=== PATIENT | male | born 2000 | race Caucasian/White ===

== ENCOUNTER 2024-05-11 14:26 | Outpatient (REF) | payer BC, SELFPAY ==
--- NOTE | ~2024-05-11 | MR_ITS ---
EXAMINATION: MR LUMBAR SPINE WITHOUT CONTRAST CLINICAL INFORMATION: Low back pain COMPARISON: None available. TECHNIQUE: MRI of the lumbar spine was obtained using routine sequences without the administration of intravenous contrast. FINDINGS: This examination assumes the presence of 5 lumbar type vertebral bodies. For the purposes of this examination, the L5-S1 intervertebral disc space is visualized on axial series 8 image 28. Straightening of the normal lumbar lordosis. Mild retrolisthesis of L4-5 and L5-S1. Multilevel Schmorl's nodes are noted. Degenerative endplate edema at L4-L5. The conus medullaris and cauda equina nerve roots are unremarkable; the conus terminates at the level of T12-L1. L1-L2: Facet arthropathy. The spinal canal is patent. Mild narrowing of the right neural foramen. L2-L3: Facet arthropathy. The spinal canal appears mildly narrowed on a congenital basis and is otherwise patent. The neural foramen are not significantly narrowed. L3-L4: Facet arthropathy. Prominent epidural fat. The spinal canal appears mildly narrowed on the congenital basis. The neural foramen are patent. L4-L5: Disc bulge and osteophytic ridging with facet arthropathy and ligamentum flavum redundancy. Narrowing of the lateral recesses abutting the descending L5 nerve roots. Mild narrowing of the central canal. Moderate right and [id number] left neural foraminal stenosis. L5-S1: Disc bulge and osteophytic ridging with left subarticular disc extrusion extending inferiorly. This asymmetrically narrows the left lateral recess and approximates the descending left S1 nerve root. The central canal is otherwise patent. Facet arthropathy. Mild to moderate right neural foraminal stenosis with exiting nerve root abutment. There is severe left neural foraminal stenosis with impingement of the exiting left L5 nerve root. MR/MR lumbar spine wo con IMPRESSION: Straightening of the normal lumbar lordosis with multilevel Schmorl's nodes. 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 At L5-S1 there is a small left subarticular disc extrusion with inferior extension. This asymmetrically narrows the left lateral recess in close approximation to the descending left S1 nerve root. Severe left neural foraminal stenosis at L5-S1 with impingement of the exiting left L5 nerve root. Moderate right neural foraminal stenosis at L4-L5.
== END 2024-05-11 14:27 | disposition home or self-care (01) ==
LOC: HO.MRI 14:26
PROVIDERS: Visit Provider Family Medicine
DX: M54.50 Low back pain, unspecified (principal)
CPT/HCPCS: 72148